=== PATIENT | male | born 1950 | race Two or more races ===

== ENCOUNTER → 2017-02-03 | Outpatient (CLI) | payer BC, MEDICARE ==
[2016-10-03 13:45] VITALS: BP 160/85
[~2017-02-03] MED LIST: ASCO-78 PO; BUPIVACAINE MPF 0.5% 10 ML VIAL for KCIC. IJ ONE; DOCU-27 PO; HYDR-971 PO; IOHEXOL 180 MG/ML 10 ML VIAL. INT ART ONE; LIDOCAINE 1% Multi-Dose 20 ML VIAL. ID ONE; LOVA40TA2 PO; ORPH100T PO; OXYC-323 PO; Oxycodone Hcl/Acetaminophen PO; methylPREDNISolone ACETATE 40 MG/ML VIAL. INT ART ONE
--- NOTE | 2017-02-03 15:51 | KCIC ---
PROCEDURE Right hip injection under fluoroscopy 02/03/2017 HISTORY Chronic right hip pain. TECHNIQUE After the risks and benefits of the procedure were explained to the patient, written informed consent was obtained. A grupo was placed in the skin surface anterior to the right hip. This area was prepped and draped in sterile fashion. 1 percent lidocaine was used as a local anesthetic. Under fluoroscopic guidance, a 22 gauge spinal needle was advanced into the anterior aspect of the right hip joint. Intraarticular position of the needle was confirmed with 4 cc of Omnipaque 180. Following this a solution containing 4 cc of 0.5 percent Marcaine, 4 cc of 1 percent lidocaine and 80 milligrams of Depo-Medrol were injected into the right hip. Following this the needle was removed and hemostasis achieved at the puncture site. A sterile Band-Aid was placed on the skin puncture site. The patient tolerated the procedure well and there were no immediate complications. The total fluoroscopic time for this study was 48 seconds. A single fluoroscopic captured digital radiograph of the right hip was obtained. IMPRESSION Technically successful fluoroscopically guided injection of the right hip as outlined above. Electronically signed by: Edinson Calderon MD (Feb 03, 2017 15:50:14)
== END | disposition home or self-care (01) ==
LOC: KCIC 10:01
PROVIDERS: ATTEND Family Medicine
DX: M25.551 Pain in right hip (principal)
CPT/HCPCS: 20610; 77002; J1030

== ENCOUNTER → 2017-09-03 | Outpatient (CLI) | payer BC, MEDICARE ==
[2016-10-03 13:45] VITALS: BP 160/85
[~2017-09-03] MED LIST changes: +CONTRAST GIVEN MC PRN; +DOCU-109 PO; -DOCU-27 PO; -IOHEXOL 180 MG/ML 10 ML VIAL. INT ART ONE; +IOHEXOL 300 MG/ML 50 ML VIAL. INT ART ONE
--- NOTE | 2017-09-03 15:49 | KCIC ---
PROCEDURE Therapeutic right hip injection using fluoroscopic guidance. HISTORY Hip pain. Pain is chronic. TECHNIQUE The procedure was explained to the patient as were potential risks, including infection, bleeding or allergic reaction. All questions were answered. Informed written and verbal consent was obtained. The hip was prepped and draped in the usual sterile manner. Following administration of local anesthetic, a 22-gauge spinal needle was advanced into the hip joint without difficulty, with care taken to avoid the vascular structures. Stylet was removed and following negative aspiration, a mixture of 4 cc Omnipaque-300, 2 cc (80 mg) Depo-Medrol, 4 cc 0.5% Marcaine and 4 cc 1% lidocaine were injected without difficulty. Fluoroscopy demonstrates uniform and satisfactory distribution of the injection through the hip. The needle was removed. There was good hemostasis at the injection site. The patient left in stable condition without immediate complication. A single spot image was obtained. FLUOROSCOPY TIME: 43 seconds Electronically signed by: Thaddeus Monroe MD (09/03/2017 3:46 PM) [id number]
== END | disposition home or self-care (01) ==
LOC: KCIC 14:46
PROVIDERS: ATTEND Orthopaedic Surgery Sports Medicine
DX: M25.551 Pain in right hip (principal); G89.29 Other chronic pain
CPT/HCPCS: 20610; 77002; J1030; Q9967

== ENCOUNTER → 2018-01-21 | Outpatient (CLI) | payer BC, MEDICARE ==
[2018-01-21] MEDS: BUPIVACAINE MPF 0.5% 10 ML VIAL for KCIC. IJ (13:02)
[2018-01-21] MEDS: LIDOCAINE 1% Multi-Dose 20 ML VIAL. ID (13:02)
[2018-01-21] MEDS: methylPREDNISolone ACETATE 40 MG/ML VIAL. INT ART (13:02)
[2018-01-21] MEDS: IOHEXOL 300 MG/ML 50 ML VIAL. INT ART (13:02)
== END | disposition home or self-care (01) ==
LOC: KCIC 12:00
DX: M16.11 Unilateral primary osteoarthritis, right hip (principal); E78.00 Pure hypercholesterolemia, unspecified; Z86.718 Personal history of other venous thrombosis and embolism; Z90.49 Acquired absence of other specified parts of digestive tract; Z87.442 Personal history of urinary calculi; M19.90 Unspecified osteoarthritis, unspecified site
CPT/HCPCS: 20610; 77002; J1030; Q9967

== ENCOUNTER → 2018-08-01 | Outpatient (CLI) | payer OTHER, MEDICARE ==
[2016-10-03 13:45] VITALS: BP 160/85
[~2018-08-01] MED LIST changes: -BUPIVACAINE MPF 0.5% 10 ML VIAL for KCIC. IJ ONE; -CONTRAST GIVEN MC PRN; -IOHEXOL 300 MG/ML 50 ML VIAL. INT ART ONE; -LIDOCAINE 1% Multi-Dose 20 ML VIAL. ID ONE; -methylPREDNISolone ACETATE 40 MG/ML VIAL. INT ART ONE
--- NOTE | 2018-08-01 16:48 | KCIC ---
CHEST PA LATERAL Clinical indications: Chronic cough. COMPARISON: October 03, 2016. Findings: No acute lung infiltrate or pleural effusion or pulmonary edema or lung mass or pneumothorax is seen. The heart size, pulmonary vasculature, mediastinum and both carmine are unremarkable. The osseous structures appear intact. Impression: No acute radiographic abnormality is seen. Electronically signed by: Alex Ortiz MD (08/01/2018 4:44 PM) [facility]
== END | disposition home or self-care (01) ==
LOC: KCIC 16:15
PROVIDERS: ATTEND Family Medicine
DX: R05 Cough (principal); E78.00 Pure hypercholesterolemia, unspecified; E78.5 Hyperlipidemia, unspecified; M16.11 Unilateral primary osteoarthritis, right hip; E66.01 Morbid (severe) obesity due to excess calories; Z87.442 Personal history of urinary calculi; Z86.718 Personal history of other venous thrombosis and embolism; Z90.49 Acquired absence of other specified parts of digestive tract; Z68.35 Body mass index [BMI] 35.0-35.9, adult; Z82.3 Family history of stroke
CPT/HCPCS: 71046

== ENCOUNTER → 2018-09-05 | Outpatient (CLI) | payer OTHER, MEDICARE ==
[2016-10-03 13:45] VITALS: BP 160/85
--- NOTE | 2018-09-05 15:25 | KCIC ---
CT of the chest without comparison for cough, chronic, productive, nonsmoker. TECHNIQUE: Contiguous helical 5 mm axial images are obtained from the thoracic inlet to the base of the diaphragm. Sagittal and coronal reformations are evaluated. FINDINGS: Central airways are patent. No areas of focal consolidation are identified. There is no pneumothorax, pleural effusion, or evidence of congestive heart failure. There are patchy areas of peripheral tree-in-bud nodularity involving both lungs, primarily within the left upper lung anteriorly, right middle lobe, and posterior right lower lobe. These could reflect areas of viral or atypical endobronchially disseminated infection. No suspicious lung nodules or masses are seen. No significant architectural changes to suggest underlying fibrosis or emphysema. There are a few normal-sized pretracheal and subcarinal lymph nodes. No suspicious hilar, mediastinal, or axillary lymphadenopathy is seen. Evaluation of the upper abdominal organs is limited by lack of IV contrast, however no gross abnormalities are evident. No osseous abnormality is are evident. IMPRESSION: 1. Patchy areas of peripheral tree-in-bud opacification involving the left upper lobe anteriorly, right middle lobe, and right posterior lobe most conspicuously. These findings may relate to infectious etiologies including viral or atypical organisms, or endobronchially disseminated disease. 2. No areas of pneumonic consolidation, and no underlying architectural changes to suggest pulmonary fibrosis or emphysema. Electronically signed by: Maikel French MD (09/05/2018 3:21 PM) [id number]
== END | disposition home or self-care (01) ==
LOC: KCIC CT 13:05
PROVIDERS: ATTEND Internal Medicine Pulmonary Disease
DX: R05 Cough (principal)
CPT/HCPCS: 71250

== ENCOUNTER → 2020-02-13 | Outpatient (CLI) | payer MEDICARE ==
[2016-10-03 13:45] VITALS: BP 160/85
[~2020-02-13] MED LIST changes: +BUPIVACAINE MPF 0.5% 10 ML VIAL for KCIC. IM ONE; +HYDR-3164 PO; -HYDR-971 PO; +IOHEXOL 300 MG/ML 50 ML VIAL. INT ART ONE; +LIDOCAINE 1% Multi-Dose 20 ML VIAL. ID ONE; -OXYC-323 PO; +OXYC1TAB15 PO; +methylPREDNISolone ACETATE 40 MG/ML VIAL. INT ART ONE
--- NOTE | 2020-02-13 12:56 | KCIC ---
EXAM: Right FLUOROSCPY-GUIDED HIP ARTHROGRAM History: Right hip pain COMPARISON: None available TECHNIQUE: Consent: A written, informed consent was obtained from the patient prior to the procedure. Appropriate time out procedures were performed. The skin was prepped and draped in the usual fashion under aseptic precautions. Dilute 1% lidocaine was used for local anesthesia. Under fluoroscopic guidance a 22 gauge long spinal needle was used to access the hip joint. A mixture of 4 mL lidocaine, 4 mL Omnipaque 300, 4 mL of bupivacaine and 80 mg of Depo-Medrol was injected. The needle was removed. Total fluoroscopic time 24 seconds IMPRESSION: Technically successful right hip steroid injection . Electronically signed by: Walter Chinchilla MD (02/13/2020 12:53 PM) [id number]
== END ==
LOC: KCIC 10:06
PROVIDERS: ATTEND Orthopaedic Surgery Sports Medicine
DX: M16.11 Unilateral primary osteoarthritis, right hip (principal)
CPT/HCPCS: 20610; 77002; J1030; J3490; Q9967

== ENCOUNTER 2020-03-31 20:27 | Emergency (ER) | payer MEDICARE ==
[~2020-03-31] VITALS: Ht 185.4 cm; Wt 122.7 kg
[~2020-03-31 20:27] MED LIST changes: -BUPIVACAINE MPF 0.5% 10 ML VIAL for KCIC. IM ONE; -IOHEXOL 300 MG/ML 50 ML VIAL. INT ART ONE; -LIDOCAINE 1% Multi-Dose 20 ML VIAL. ID ONE; -methylPREDNISolone ACETATE 40 MG/ML VIAL. INT ART ONE
--- NOTE | 2020-03-31 22:40 | PHYS DOC ---
Past Medical History Past Medical History: High Cholesterol, Hypertension Additional Past Medical Histor: high chol Past Surgical History: Appendectomy, Cervical Fusion, Other Additional Past Surgical Histo: Bilat foot, Bilat shoulder, Back x4, L) knee repair Smoking Status: Never Smoker Alcohol Use: None Drug Use: None General Adult EDM: Chief Complaint: LOWER EXT PAIN HPI: HPI: Patient is a 69 year old [f__sex] who presents with [] Review of Systems: Review of Systems: Constitutional: Denies fever or chills. [] Eyes: Denies change in visual acuity. [] HENT: Denies nasal congestion or sore throat. [] Respiratory: Denies cough or shortness of breath. [] Cardiovascular: Denies chest pain or edema. [] GI: Denies abdominal pain, nausea, vomiting, bloody stools or diarrhea. [] : Denies dysuria. [] Musculoskeletal: Denies back pain or joint pain. [] Integument: Denies rash. [] Neurologic: Denies headache, focal weakness or sensory changes. [] Endocrine: Denies polyuria or polydipsia. [] Lymphatic: Denies swollen glands. [] Psychiatric: Denies depression or anxiety. [] Heart Score: Risk Factors: Risk Factors: DM, Current or recent (<one month) smoker, HTN, HLP, family history of CAD, obesity. Risk Scores: Score 0 - 3: 2.5% MACE over next 6 weeks - Discharge Home Score 4 - 6: 20.3% MACE over next 6 weeks - Admit for Clinical Observation Score 7 - 10: 72.7% MACE over next 6 weeks - Early Invasive Strategies Allergies: Allergies: Allergies Coded Allergies Type Severity Reaction Last Updated Verified No Known Drug Allergies 03/05/16 No Physical Exam: PE: Constitutional: Well developed, well nourished, no acute distress, non-toxic appearance. [] HENT: Normocephalic, atraumatic, bilateral external ears normal, oropharynx moist, no oral exudates, nose normal. [] Eyes: PERRLA, EOMI, conjunctiva normal, no discharge. [] Neck: Normal range of motion, no tenderness, supple, no stridor. [] Cardiovascular:Heart rate regular rhythm, no murmur [] Lungs & Thorax: Bilateral breath sounds clear to auscultation [] Abdomen: Bowel sounds normal, soft, no tenderness, no masses, no pulsatile masses. [] Skin: Warm, dry, no erythema, no rash. [] Back: No tenderness, no CVA tenderness. [] Extremities: No tenderness, no cyanosis, no clubbing, ROM intact, no edema. [] Neurologic: Alert and oriented X 3, normal motor function, normal sensory function, no focal deficits noted. [] Psychologic: Affect normal, judgement normal, mood normal. [] Current Patient Data: Vital Signs: Vital Signs Date Time Temp Pulse Resp B/P (MAP) Pulse Ox O2 Delivery O2 Flow Rate FiO2 03/31/20 21:45 98.5 62 18 151/71 (97) 95 Room Air 98.5 EKG: EKG: [] Radiology/Procedures: Radiology/Procedures: [] Course & Med Decision Making: Course & Med Decision Making Pertinent Labs and Imaging studies reviewed. (See chart for details) [] Dragon Disclaimer: Dragon Disclaimer: This electronic medical record was generated, in whole or in part, using a voice recognition dictation system. Departure Departure Impression: Primary Impression: Knee pain Qualified Codes: M25.561 - Pain in right knee Disposition: HOME, SELF-CARE Condition: STABLE Referrals: ANEL MOJICA MD (PCP) NOA OMALLEY MD Patient Instructions: Knee Pain, [id number], Knee Wraps (Elastic Bandage) and RICE Additional Instructions: Use over the counter Aleve and/or Ibuprofen as needed for pain or discomfort. CAIT KAUFFMAN DO March 31, 2020 22:39
[2020-03-31 22:45] VITALS: BP 158/74
== END 2020-03-31 22:55 | disposition home or self-care (01) ==
LOC: ER 20:27
DX: M25.561 Pain in right knee (principal); E78.00 Pure hypercholesterolemia, unspecified; I10 Essential (primary) hypertension
CPT/HCPCS: 99285-25

== ENCOUNTER → 2020-09-24 | Outpatient (CLI) | payer MEDICARE ==
--- NOTE | 2020-09-24 09:11 | KCIC ---
Chest radiograph 09/24/2020 12:00 AM INDICATION: Productive cough for 5 weeks COMPARISON: 08/01/2018 TECHNIQUE: Frontal and lateral views of the chest are provided. FINDINGS: The cardiomediastinal silhouette is within normal limits. There are no pleural effusions. There is no pulmonary vascular congestion. There is no pneumothorax. Patchy interstitial airspace disease noted in the right lower lobe. No significant osseous abnormality is identified. IMPRESSION: Patchy interstitial airspace disease identified in the right lower lobe. Consideration may be given for interstitial pneumonitis in appropriate clinical setting. Short-term follow-up two-view chest radiograph may be of benefit to ensure resolution. Electronically signed by: Zehra Rangel MD (09/24/2020 9:08 AM) [facility]
== END ==
LOC: KCIC 08:47
PROVIDERS: ATTEND Family Medicine
DX: R05 Cough (principal)
CPT/HCPCS: 71046

== ENCOUNTER 2021-01-31 01:43 | Emergency (ER) | payer MEDICARE ==
[~2021-01-31] VITALS: Ht 182.9 cm; Wt 127.3 kg
[2021-01-31 01:48] VITALS: BP 172/82
--- NOTE | 2021-01-31 02:25 | PHYS DOC ---
Past Medical History Past Medical History: DVT, High Cholesterol, Hypertension Additional Past Medical Histor: high chol Past Surgical History: Appendectomy, Cervical Fusion, Other Additional Past Surgical Histo: Bilat foot, Bilat shoulder, Back x4, L) knee repair Smoking Status: Never Smoker Alcohol Use: None Drug Use: None General Adult EDM: Chief Complaint: SHORTNESS OF BREATH HPI: HPI: Patient is a 70 year old male with history of hypertension, hyperlipidemia, and DVT presents for 1 hour history of shortness of air and headache. Patient reports that 10 years ago he had a similar episode of shortness of breath. At that time he was given nitroglycerin at [facility] and his symptoms were relieved. Patient states that when he was doing some housework today he felt a little out of breath, and tonight he woke up around 1 AM and had trouble catching his breath. Upon admission patient's oxygen saturation was 99% on room air. All other vitals were stable. Patient denied any history of MA, pulmonary embolism, or asthma. Patient denies any history of tobacco use, alcohol use, recreational substance use. He has a frontal headache that was rated 8 out of 10 in severity. Patient denies any recent sick contact, denies fever chills, chest pain, abdominal pain, change in bowel movement, change in urination, and numbness and tingling in the hands and feet. Patient is the main historian. Review of Systems: Review of Systems: Review of systems: Constitutional symptoms- No fever, no chills. Eyes- No Discharge, No Visual Loss Respiratory symptoms-reports shortness of breath, No wheezing, Cardiovascular Systems; No chest pain, No Palpitations, No syncope Gastrointestinal symptoms: NO abdominal pain, no nausea, no vomiting or di arrhea. Genitourinary symptoms: No dysuria. Musculoskeletal symptoms: No back pain No extremity pain. NEUROLOGICAL Symptoms: Reports headache, no generalized weakness; No focal Weakness Heart Score: C/O Chest Pain: No Risk Factors: Risk Factors: DM, Current or recent (<one month) smoker, HTN, HLP, family history of CAD, obesity. Risk Scores: Score 0 - 3: 2.5% MACE over next 6 weeks - Discharge Home Score 4 - 6: 20.3% MACE over next 6 weeks - Admit for Clinical Observation Score 7 - 10: 72.7% MACE over next 6 weeks - Early Invasive Strategies Allergies: Allergies: Allergies Coded Allergies Type Severity Reaction Last Updated Verified No Known Drug Allergies 03/05/16 No Physical Exam: PE: General: alert, no acute distress. Skin: warm, dry and intact. Head:: Normocephalic, atraumatic. Neck: Trachea midline. Eyes: EOMI, Normal conjunctiva, No drainage CARDIOVASCULAR: Regular rate and rhythm RESPIRATORY: Patient was hyperventilating, lungs clear to auscultation bilaterally. Back: Full range of motion. MUSCULOSKELETAL: Full range of motion of bilateral upper and lower extremities. GASTROINTESTINAL: Abdomen soft, nondistended, with no edema, without rebound or guarding. NEUROLOGICAL: Alert and noted to person, place and time. No neurological deficits observed Psychiatric: Cooperative. Normal judgment Current Patient Data: Vital Signs: Vital Signs Date Time Temp Pulse Resp B/P (MAP) Pulse Ox O2 Delivery O2 Flow Rate FiO2 01/31/21 01:48 97.9 66 20 172/82 (112) 99 Room Air 97.9 EKG: EKG: [] EKG performed at 1:52 AM heart rate [address] elevation no ST depression no acute MA Radiology/Procedures: Radiology/Procedures: [] Impression: Chest AP portable at 0222: Reason for examination: Shortness of breath. Comparison is made to previous study dated 09/24/2020. The heart size is normal. Mediastinum is unremarkable. Lung damon are clear. No acute bony abnormalities are seen. IMPRESSION: No acute cardiopulmonary disease evident. Electronically signed by: Caroline Barragan MD (01/31/2021 2:36 AM) [facility] Course & Med Decision Making: Course & Med Decision Making Pertinent Labs and Imaging studies reviewed. (See chart for details) [] Patient was evaluated for chief complaint. Work-up consisted of laboratory analysis radiologic imaging and EKG. Results reviewed and discussed with patient. Patient's troponin within normal limits EKG no acute abnormalities. Patient denied having any chest discomfort. Chest x-ray normal no for focal infiltrates. Patient denied any associated cough fever chills Covid symptoms. At time my exam patient states his shortness of breath has resolved. Patient's only complaint was a mild headache. Patient's vital signs stable he will be discharged home with instruction to follow-up with his primary care physician. Elly Disclaimer: [place] Disclaimer: This electronic medical record was generated, in whole or in part, using a voice recognition dictation system. Departure Departure Impression: Primary Impression: Dyspnea Disposition: 01 DC HOME SELF CARE/HOMELESS Condition: STABLE Referrals: ANEL MOJICA MD (PCP) Patient Instructions: Shortness of Breath GAURANG SHRESTHA DO Jan 31, 2021 02:25
[2021-01-31 02:31] LABS: BASO # 0.1 x10^3/uL (0.0-0.2); BASO % 1 % (0-3); EOS # 0.2 x10^3/uL (0.0-0.7); EOS % 2 % (0-3); HEMATOCRIT 49.7 % (39.0-53.0); HEMOGLOBIN 17.2 g/dL (13.0-17.5); LYMPH # 2.1 x10^3/uL (1.0-4.8); LYMPH % 26 % (24-48); MEAN CORPUSCULAR HEMOGLOBIN 30 pg (25-35); MEAN CORPUSCULAR HGB CONC 35 g/dL (31-37); MEAN CORPUSCULAR VOLUME 87 fL (79-100); MONO # 0.9 x10^3/uL (0.0-1.1); MONO % 10 % (0-9); NEUT # 5.1 x10^3/uL (1.8-7.7); NEUT % 61 % (31-73); PLATELET COUNT 189 x10^3/uL (140-400); RED BLOOD COUNT 5.72 x10^6/uL (4.30-5.70); RED CELL DISTRIBUTION WIDTH 13.6 % (11.5-14.5); WHITE BLOOD COUNT 8.4 x10^3/uL (4.0-11.0)
--- NOTE | 2021-01-31 02:38 | RAD ---
Chest AP portable at 0222: Reason for examination: Shortness of breath. Comparison is made to previous study dated 09/24/2020. The heart size is normal. Mediastinum is unremarkable. Lung damon are clear. No acute bony abnormali ties are seen. IMPRESSION: No acute cardiopulmonary disease evident. Electronically signed by: Caroline Barragan MD (01/31/2021 2:36 AM) [facility]
[2021-01-31 02:44] LABS: CALCIUM 9.3 mg/dL (8.5-10.1); CREATININE 0.9 mg/dL (0.7-1.3); GFR 82.9; POTASSIUM 3.9 mmol/L (3.5-5.1)
[2021-01-31 02:49] LABS: ALBUMIN 3.6 g/dL (3.4-5.0); TOTAL BILIRUBIN 1.1 mg/dL (0.2-1.0); TOTAL PROTEIN 7.3 g/dL (6.4-8.2)
[2021-01-31] MEDS ORDERED: ACETAMINOPHEN 500 MG TABLET PO ONE (04:00)
--- NOTE | 2021-01-31 04:45 | EKG ---
[facility] [address] [place] [address] Test Date: 2021-01-31 Test Time: 01:52:11 Pat Name: RAFI BARR Department: Room: Gender: M [employer] Teacher: : 1950 Requested By: GAURANG SHRESTHA Order Number: [id number] Reading MD: Measurements Intervals [place] Rate: 67 P: 41 [place]: 140 QRS: 29 QRSD: 84 T: 56 QT: 404 QTc: 430 Interpretive Statements SINUS RHYTHM ATRIAL PREMATURE COMPLEX(ES) OTHERWISE NORMAL ECG RI6.02 No previous ECG available for comparison
== END 2021-01-31 03:50 | disposition home or self-care (01) ==
LOC: ER 01:43
DX: R06.00 Dyspnea, unspecified (principal); R06.02 Shortness of breath; R51.9 Headache, unspecified; E78.00 Pure hypercholesterolemia, unspecified; I10 Essential (primary) hypertension; Z86.718 Personal history of other venous thrombosis and embolism; Z90.89 Acquired absence of other organs; Z98.890 Other specified postprocedural states
CPT/HCPCS: 36415; 71045; 80053; 83880; 84484; 85025; 93005; 99285